=== PATIENT | male | born 1975 | race Caucasian/White ===

== ENCOUNTER 2016-10-16 09:03 | Emergency (ER) | payer OTHER ==
[2016-10-16 09:21] VITALS: TEMP 98.2; BMI 41.1
--- NOTE | 2016-10-16 09:38 | PDOC ---
History of Present Illness - General Chief Complaint: Blood Sugar Problem Stated Complaint: DIZZINESS Time Seen by Provider: 10/16/16 09:23 - History of Present Illness Initial Comments: 10/16/16 09:35 41-year-old male with a past medical history of AODM, diagnosed in the past year , on levemir insulin daily, as well as hypertension hyperlipidemia and obesity Surgical history-[facility] Primary care physician-Dr. Mckeon Patient states that for the past 4 days his sugar is been running high on his home Accu-Cheks He states it's been 350-470 He denies any recent change in his insulin or noncompliance with his insulin He does admit to polyuria, polydipsia, and blurred vision He is also noted some numbness and tingling in his toes since his sugar has been high He denies any recent intercurrent illness that may have set this off He denies any chest pain or shortness of breath He denies any change in any of his medications He denies any nausea vomiting or diarrhea He denies any other complaints at this time, and the remainder of the review of systems is negative Past History - Past Medical History Allergies/Adverse Reactions: Allergies Allergy/AdvReac Type Severity Reaction Status Date / Time No Known Allergies Allergy Verified 10/16/16 09:14 Home Medications: Ambulatory Orders Gemfibrozil [Lopid -] 600 mg PO BID@0700,1630 #60 tablet 12/21/15 Insulin (Levemir) [Levemir Vial] 8 units SQ DAILY #5 ml 12/21/15 Lisinopril [Prinivil] 20 mg PO DAILY #30 tablet 12/21/15 Diabetes: Yes HTN: Yes - Psycho/Social/Smoking Cessation Hx Anxiety: No Suicidal Ideation: No Smoking History: Never smoked Information on smoking cessation initiated: No Hx Alcohol Use: No Drug/Substance Use Hx: No Substance Use Type: None Hx Substance Use Treatment: No *Physical Exam - Vital Signs Last Vital Signs Temp Pulse Resp BP Pulse Ox 98.2 F 97 H 18 138/96 98 10/16/16 09:08 10/16/16 09:08 10/16/16 09:08 10/16/16 09:08 10/16/16 09:08 - Physical Exam Comments: 10/16/16 09:37 Physical exam Last Vital Signs Temp Pulse Resp BP Pulse Ox 98.2 F 97 H 18 138/96 98 10/16/16 09:08 10/16/16 09:08 10/16/16 09:08 10/16/16 09:08 10/16/16 09:08 GENERAL: The patient is awake, alert, and fully oriented, and in no apparent distress. HEAD: Normal with no signs of trauma. EYES: Pupils equal, round and reactive to light, extraocular movements intact, sclera anicteric, conjunctiva are normal. ENT: Moist mucous membranes. NECK: Normal range of motion, supple LUNGS: Breath sounds equal, clear to auscultation bilaterally. No wheezes, and no crackles. HEART: Regular rate and rhythm, normal S1 and S2 without murmur, rub or gallop. ABDOMEN: Soft, nontender, normoactive bowel sounds. No guarding, no rebound. No masses appreciated. EXTREMITIES: Normal range of motion, no edema. No clubbing or cyanosis. No cords, erythema, or tenderness. NEUROLOGICAL: Cranial nerves II through XII grossly intact. Normal speech, normal gait. PSYCH: Normal mood, normal affect. SKIN: Warm, Dry, normal turgor, no rashes or lesions noted. ED Treatment Course - LABORATORY CBC & Chemistry Diagram: 10/16/16 09:45 10/16/16 09:40 Medical Decision Making - Medical Decision Making 10/16/16 09:37 Diabetes out of control with associated symptomatology 10/16/16 11:03 CBC normal CMP significant for Random glucose 331, sodium 130 consistent with random glucose of 331 BUN/creatinine normal Urine significant for 3+ glucose, and negative ketones Laboratory Results - last 24 hr 10/16/16 10/16/16 10/16/16 09:18 09:40 09:41 WBC RBC Hgb Hct MCV MCHC RDW Plt Count MPV Sodium 130 L Potassium 4.6 D Chloride 99 Carbon Dioxide 27 Anion Gap 4 L BUN 10 D Creatinine 0.9 Creat Clearance w eGFR > 60 POC Glucometer [phone] Random Glucose 331 H* Calcium 9.7 Magnesium 2.0 Total Bilirubin 0.4 D AST 35 D ALT 46 H D Alkaline Phosphatase 76 Total Protein 7.5 D Albumin 4.4 D Urine Color Yellow Urine Appearance Clear Urine pH 7.0 Ur Specific [place] 1.015 Urine Protein Negative Urine Glucose (UA) 3+ H Urine Ketones Negative Urine Blood Negative Urine Nitrite Negative Urine Bilirubin Negative Urine Urobilinogen 0.2 e.u/dl Ur Leukocyte Esterase Negative 10/16/16 09:45 WBC 6.4 D RBC 5.55 Hgb 15.5 Hct 47.6 MCV 85.8 MCHC 32.6 RDW 11.8 L Plt Count 260 D MPV 9.3 Sodium Potassium Chloride Carbon Dioxide Anion Gap BUN Creatinine Creat Clearance w eGFR POC Glucometer Random Glucose Calcium Magnesium Total Bilirubin AST ALT Alkaline Phosphatase Total Protein Albumin Urine Color Urine Appearance Urine pH Ur Specific [place] Urine Protein Urine Glucose (UA) Urine Ketones Urine Blood Urine Nitrite Urine Bilirubin Urine Urobilinogen Ur Leukocyte Esterase We'll try to bring down with hydration, and a small amount of IV insulin 10/16/16 12:14 Accu-Chek 170 after IV fluids and 3 units of Regular Insulin IV Spoke further with patient, - he has been very non-adherent with his levemir, and has been skipping his insulin for multiple days 10/16/16 12:23 Case and all results discussed with Dr. Mckeon Will send patient directly to Dr. Mckeon's office now, for further insulin management Pt feeling much better with his glucose 170 I discussed with the patient the importance of using his insulin as directed daily, and not to skip doses!!! *DC/Admit/Observation/Transfer Diagnosis at time of Disposition: Poorly controlled diabetes mellitus - Discharge Dispostion Disposition: HOME Condition at time of disposition: Improved - Referrals Referrals: Pedro Mckeon MD [Staff Physician] - - Patient Instructions Additional Instructions: You are to go directly to Dr. Mckoen's office now-he is expecting you [address] [place] [address] office He will instruct you further on your diabetes medications - Post Discharge Activity Work/School Note: Back to Work
[2016-10-16] MEDS ORDERED: SODIUM CHLORIDE 1,000 ML IV SCH (09:45)
[2016-10-16 09:50] LABS: MCH 27.9 pg (25.7-33.7); MCHC 32.6 g/dl (32.0-35.9); MEAN CELL VOLUME 85.8 fl (80-96); MEAN PLT VOLUME 9.3 fl (7.5-11.1); PLATELET COUNT 260 K/MM3 (134-434); RDW 11.8 % (11.9-15.9); WHITE BLOOD COUNT 6.4 K/mm3 (4.0-10.0)
[2016-10-16 09:53] LABS: URINE APPEARANCE Clear; URINE BILIRUBIN Negative (NEGATIVE); URINE BLOOD Negative (NEGATIVE); URINE COLOR YELLOW; URINE GLUCOSE (UA) 3+ (NEGATIVE); URINE KETONE Negative (NEGATIVE); URINE LEUK ESTERASE Negative (NEGATIVE); URINE NITRITE Negative (NEGATIVE); URINE PROTEIN Negative (NEGATIVE); URINE UROBILINOGEN 0.2 E.U/dl (0.2-1.0)
[2016-10-16 10:07] LABS: ALBUMIN 4.4 g/dl (3.5-5.0); ALK PHOS 76 U/L (32-92); ANION GAP 4 (8-16); BILIRUBIN,TOTAL 0.4 mg/dl (0.2-1.0); CALCIUM 9.7 mg/dl (8.4-10.2); CO2 27 mmol/L (22-28); CREATININE 0.9 mg/dl (0.6-1.3); SGOT/AST 35 U/L (10-42); SGPT/ALT 46 U/L (10-40); TOT PROT 7.5 g/dl (6.4-8.3)
[2016-10-16 10:59] LABS: GLUCOSE,RANDOM 331 mg/dl (74-106)
[2016-10-16] MEDS ORDERED: INSULIN REGULAR HUMAN 100 UNITS/ML *VIAL IVPUSH ONE (11:04)
[2016-10-16] MEDS ORDERED: INSULIN REGULAR HUMAN 100 UNITS/ML *VIAL ONE (11:08)
[2016-10-16 12:34] VITALS: BP 130/84; PULSE 80
== END 2016-10-16 12:40 | disposition home or self-care (01) ==
LOC: FER 09:03
PROC: 3E033VG Introduction of Insulin into Peripheral Vein, Percutaneous Approach (ICD-10-PCS; principal; 2016-10-16)
DX: E13.65 Other specified diabetes mellitus with hyperglycemia (principal); Z79.4 Long term (current) use of insulin; E78.5 Hyperlipidemia, unspecified; E66.9 Obesity, unspecified; Z68.41 Body mass index [BMI] 40.0-44.9, adult
CPT/HCPCS: 36415; 80053; 81003; 83735; 85027; 96374; 99284-25

== ENCOUNTER 2017-08-26 09:10 | Emergency (ER) | payer OTHER ==
[2017-08-26] MEDS ORDERED: ALBUTEROL SO4 2.5/IPRATROPIUM 0.5 INH SOL 3 ML VIAL.NEB. NEB ONE ×4 (09:22→10:21)
[2017-08-26 09:23] VITALS: TEMP 100; BMI 37.5
[2017-08-26] MEDS ORDERED: ACETAMINOPHEN 325 MG TABLET (FP) PO ONE (09:23)
[2017-08-26] MEDS ORDERED: ACETAMINOPHEN 325 MG TABLET (FP) ONE (09:30)
[2017-08-26] MEDS ORDERED: IBUPROFEN 600 MG TABLET (FP) PO ONE ×2 (10:18→10:22)
[2017-08-26 10:38] VITALS: BP 155/99; PULSE 90
--- NOTE | 2017-08-26 10:49 | PDOC ---
History of Present Illness - General Chief Complaint: Respiratory Stated Complaint: COUGH BODY ACHES FEVER BODY ACHES Time Seen by Provider: 08/26/17 09:19 Exam Limitations: No Limitations - History of Present Illness Initial Comments: 08/26/17 10:44 42-year-old male history of hypertension and diabetes, here today complaining of cough, congestion, body aches, subjective fever. Patient states symptoms started 2 days ago did notice a fever since last p.m. No nausea no vomiting no abdominal pain. Denies any sick contact or travel no abdominal pain. No rash has had episodes of bronchitis the passenger's treated with an inhaler but denies any asthma or tobacco use no other drug use cough is been nonproductive yesterday took a cough suppressant and decongestant with minimal relief Past History - Past Medical History Allergies/Adverse Reactions: Allergies Allergy/AdvReac Type Severity Reaction Status Date / Time No Known Allergies Allergy Verified 08/26/17 09:15 Home Medications: Ambulatory Orders Lisinopril [Prinivil] 20 mg PO DAILY #30 tablet 12/21/15 Albuterol Sulfate Inhaler - [Ventolin HFA Inhaler -] 1 - 2 inh PO Q4H PRN #1 inhaler 08/26/17 Gemfibrozil [Lopid -] 600 mg PO HS 08/26/17 Insulin (Levemir) [Levemir Vial] 15 units SQ DAILY 08/26/17 COPD: No Diabetes: Yes HTN: Yes - Suicide/Smoking/Psychosocial Hx Smoking History: Never smoked Information on smoking cessation initiated: No Hx Alcohol Use: No Drug/Substance Use Hx: No Substance Use Type: None Hx Substance Use Treatment: No Review of Systems - Review of Systems Constitutional: Yes: Chills, Fever. No: Diaphoresis HEENTM: No: Eye Pain, Blurred Vision Respiratory: Yes: Cough, Shortness of Breath, Wheezing Cardiac (ROS): No: Chest Pain, Irregular Heart Rate : No: Burning, Dysuria Musculoskeletal: Yes: Muscle Weakness, Joint Stiffness All Other Systems: Reviewed and Negative *Physical Exam - Vital Signs Last Vital Signs Temp Pulse Resp BP Pulse Ox 100 F H 90 20 155/99 96 08/26/17 09:13 08/26/17 10:37 08/26/17 10:37 08/26/17 10:37 08/26/17 10:37 - Physical Exam Comments: 08/26/17 10:45 Awake alert, no acute distress. Lungs with rhonchorous breath sounds at bilateral bases faint wheezing on expiration, normal effort. Heart is regular no murmurs rubs or gallops. Abdomen soft and nontender. Skin is warm and dry no rash extremities are warm well perfused neuro patient is alert and oriented 3 ambulates without difficulty ED Treatment Course - RADIOLOGY Radiology Studies Ordered: Category Date Time Status CHEST PA & LAT [RAD] Stat Radiology 08/26/17 09:20 Completed - Medications Given in the ED: ED Medications Discontinued Medications Generic Name Dose Route Start Last Admin Trade Name Freq PRN Reason Stop Dose Admin Acetaminophen 650 mg 08/26/17 09:23 08/26/17 09:33 Tylenol - PO 08/26/17 09:24 650 mg ONCE ONE Administration Albuterol/Ipratropium 1 amp 08/26/17 09:22 08/26/17 09:33 Duoneb - NEB 08/26/17 09:23 1 amp ONCE ONE Administration Albuterol/Ipratropium 1 amp 08/26/17 10:19 08/26/17 10:25 Duoneb - NEB 08/26/17 10:20 1 amp ONCE ONE Administration Ibuprofen 600 mg 08/26/17 10:18 08/26/17 10:24 Motrin - PO 08/26/17 10:19 600 mg ONCE ONE Administration Medical Decision Making - Medical Decision Making 08/26/17 10:46 2-year-old male with cough congestion bodyaches subjective fevers, differential includes pneumonia, bronchitis, viral syndrome, influenza. Plan: Chest x-ray bronchodilators Tylenol and reassessment flu swab Patient's phone number [phone] *DC/Admit/Observation/Transfer - Discharge Dispostion Disposition: HOME Condition at time of disposition: Improved - Prescriptions Prescriptions: Albuterol Sulfate Inhaler - [Ventolin HFA Inhaler -] 1 - 2 inh PO Q4H PRN #1 inhaler PRN Reason: Cough - Referrals Referrals: Pedro Mckeon MD [Staff Physician] - - Patient Instructions Printed Discharge Instructions: DI for Acute Bronchitis Additional Instructions: He should follow-up with Dr. quezada within 5-7 days. Call to schedule. Use albuterol inhaler 2 puffs every 4 hours as needed for wheezing or cough. Take Tylenol 500 milligrams every 6 hours as needed for fever or body aches. He can also take Motrin 600 mg every 8 hours as needed for bodyaches pain or fever. Return for fever not improving with Tylenol or Motrin, shortness of breath, worsening symptoms or any concerns - Post Discharge Activity Forms/Work/School Notes: Back to Work
== END 2017-08-26 10:55 | disposition home or self-care (01) ==
LOC: FER 09:10
PROC: 3E0F7GC Introduction of Other Therapeutic Substance into Respiratory Tract, Via Natural or Artificial Opening (ICD-10-PCS; principal; 2017-08-26)
DX: R05 Cough (principal); I10 Essential (primary) hypertension; E11.9 Type 2 diabetes mellitus without complications; Z79.4 Long term (current) use of insulin
CPT/HCPCS: 71020-TC; 87804; 99282-25

== ENCOUNTER 2023-11-07 10:47 | Emergency (ER) | payer OTHER ==
[2023-11-07] MEDS ORDERED: IBUPROFEN 400 MG TABLET (FP) PO ONE (11:12)
[2023-11-07] MEDS: IBUPROFEN 400 MG TABLET (FP) PO ONE (11:13)
[2023-11-07 11:31] VITALS: BP 146/99; PULSE 102; RESP 18; TEMP 98.3; BMI 40.7
== END 2023-11-07 12:12 | disposition home or self-care (01) ==
LOC: FER 10:47
DX: R07.81 Pleurodynia (principal); M54.50 Low back pain, unspecified; R10.9 Unspecified abdominal pain; W18.39XA Other fall on same level, initial encounter
CPT/HCPCS: 99283-25

== ENCOUNTER → 2023-12-20 | Emergency (ER) | payer OTHER ==
[~2023-12-20] MED LIST: ASPIRIN 81 MG CHEWABLE TABLETS ONE; HEPARIN NA (PORCINE) 5,000 UNITS/ML 1ML VIAL IVPUSH PRN; TICAGRELOR 90 MG TABLET PO ONE; TICAGRELOR 90 MG TABLET PO SCH; morphine SULFATE 4 MG/ML VIAL ONE
[2023-12-20] MEDS: ASPIRIN 81 MG CHEWABLE TABLETS PO ONE (18:48)
[2023-12-20 18:59] LABS: HEMATOCRIT 44.1 % (35.4-49); MCH 28.1 pg (25.7-33.7); MEAN CELL VOLUME 82.8 fl (80-96); MEAN PLT VOLUME 9.2 fl (7.5-11.1); PLATELET COUNT 202.9 10^3/uL (134-434); RBC 5.33 10^6/uL (4.00-5.60); RDW 14.7 % (11.9-15.9); WHITE BLOOD COUNT 8.5 10^3/uL (4.0-10.8)
[2023-12-20] MEDS: morphine CARPU-JECT 8 MG/1 ML DISP.SYRIN IVPUSH ONE (19:02)
[2023-12-20] MEDS: HEPARIN NA (PORCINE) 5,000 UNITS/ML 1ML VIAL IVPUSH ONE (19:04)
[2023-12-20] MEDS: HEPARIN INFUSION - 25,000 UNITS/500 ML INFUS.BAG IVPB SCH (19:04)
[2023-12-20 19:15] LABS: INR 1.02 (0.83-1.09); PROTHROMBIN TIME (PATIENT) 11.8 SEC (9.7-13.0)
[2023-12-20 19:17] LABS: ACTIVATED PTT 29.9 SECONDS (25.2-36.5)
[2023-12-20 19:23] LABS: ALBUMIN 3.9 g/dl (3.4-5.0); ALK PHOS 64 U/L (45-117); ANION GAP 10 mmol/L (4-13); BILIRUBIN,TOTAL 0.6 mg/dl (0.2-1); CALCIUM 9.7 mg/dl (8.5-10.1); CHLORIDE 93 mmol/L (98-107); CO2 27 mmol/L (21-32); CREATININE 1.2 mg/dl (0.6-1.3); POTASSIUM 4.3 mmol/L (3.5-5.1); SGOT/AST 16 U/L (15-37); SGPT/ALT 24 U/L (7-52); SODIUM 130 mmol/L (136-145); TOT PROT 6.7 g/dl (6.4-8.2)
[2023-12-20 19:40] LABS: GLUCOSE,RANDOM 584 mg/dl (74-106)
[2023-12-20 19:41] VITALS: RESP 18; BMI 42.3
[2023-12-20 19:56] VITALS: BP 128/80; PULSE 112; TEMP 98
== END | disposition short-term general hospital (02) ==
LOC: FER 18:11
PROC: 3E033NZ Introduction of Analgesics, Hypnotics, Sedatives into Peripheral Vein, Percutaneous Approach (ICD-10-PCS; principal; 2023-12-20)
PROC: 3E033GC Introduction of Other Therapeutic Substance into Peripheral Vein, Percutaneous Approach (ICD-10-PCS; 2023-12-20)
DX: R07.9 Chest pain, unspecified (principal); R10.9 Unspecified abdominal pain; R50.9 Fever, unspecified; I21.3 ST elevation (STEMI) myocardial infarction of unspecified site; Z20.822 Contact with and (suspected) exposure to COVID-19
CPT/HCPCS: 0241U-QW; 36415; 80053; 84484; 85027; 85610; 85730; 86850; 86900; 86901; 93005; 93010; 96374; 96375; 99291; J1644